=== PATIENT | male | born 1985 | race African-American/Black ===

== ENCOUNTER 2020-04-14 17:20 | Emergency (ER) | payer SELFPAY ==
[~2020-04-14] VITALS: Ht 193 cm; Wt 86.2 kg
--- NOTE | 2020-04-14 18:01 | NUR ---
Patient discharged to home in stable condition. Written and verbal after care instructions given. Patient verbalizes understanding of instructions. Stressed follow up or return to ER for worsening s/s.
== END 2020-04-14 18:03 | disposition home or self-care (01) ==
LOC: ER 17:22
DX: S61.412D Laceration without foreign body of left hand, subsequent encounter (principal); X58.XXXD Exposure to other specified factors, subsequent encounter
CPT/HCPCS: A4663